=== PATIENT | male | born 1980 | race Caucasian/White ===

== ENCOUNTER 2016-06-20 10:45 | Emergency (ER) | payer MEDICAID ==
[2016-06-20 11:09] VITALS: BP 154/100
[2016-06-20] MEDS ORDERED: Ketorolac 60 MG/2 ML SDV IM ONE (11:22)
--- NOTE | 2016-06-20 11:32 | EDM.PDOC ---
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 Had lesser pain on the right but that has since resolved. Took J[employer]quin Back and Body last at midnight and this was not helpful. No certainty of injury which occurred. Pt reports he was able to work the right arm and shoulder yesterday and now has full range of motion. Left remains limited. Occurred When: other (Monday evening) Occurred Where: home Method of Injury: other (wrestling) Severity: mild Pain/Injury Location: Reports: chest, upper extremity, left Consciousness: Reports: no loss of consciousness Associated Symptoms: Reports: denies other symptoms Allergies/ADRs: Allergies No Known Allergies Allergy (Verified 06/20/16 11:09) Home Medications: Ambulatory Orders Aspirin/Caffeine [Juaquin Back & Body Caplet] 2 tab PO ASDIRECTED 06/20/16 [ Confirmed 06/20/16] Past Medical History Musculoskeletal History: Reports: Fracture, Gout - Infectious Disease History Infectious Disease History: Reports: Chicken pox - Past Surgical History Musculoskeletal Surgical History: Reports: Other (see below) Other Musculoskeletal Surgeries/Procedures:: left hand surgery Social & Family History - Tobacco Use Smoking Status *Q: Current Every Day Smoker Years of Tobacco use: 18 Packs/Tins Daily: 0.5 - Caffeine Use Caffeine Use: Reports: Soda - Alcohol Use Days Per Week of Alcohol Use: 4 Number of Drinks Per Day: 4 Total Drinks Per Week: 16 - Recreational Drug Use Recreational Drug Use: No Review of Systems - Review of Systems Review Of Systems: See Below Constitutional: Reports: no symptoms Eyes: Reports: no symptoms Ears: Reports: no symptoms Nose: Reports: no symptoms Mouth/Throat: Reports: no symptoms Respiratory: Reports: Pleuritic Chest Pain (isolated to left clavicle area) Cardiovascular: Reports: no symptoms GI/Abdominal: Reports: No symptoms Skin: Reports: no symptoms Neurological: Reports: No Symptoms Trauma Exam - Physical Exam Exam: See Below Exam Limited By: No limitations General Appearance: Reports: alert, no apparent distress Head: Reports: atraumatic, normocephalic Eyes: bilateral eye: PERRL Ears: Reports: normal external exam Nose: Reports: normal inspection Throat/Mouth: Reports: Normal voice, No airway compromise, Dental decay Neck: Reports: full range of motion, normal alignment, normal inspection, tender lateral (to left scapular area) Respiratory Exam: Reports: no respiratory distress, lungs clear, normal breath sounds, no accessory muscle use Cardiovascular: Reports: regular rate, rhythm Back: Reports: full range of motion (suburn noted) Extremities: Reports: no evidence of injury, bony-point tenderness (over mid left clavicle without noted deformity) Neurologic: Reports: no motor/sensory deficits, alert, normal mood/affect, oriented x 3 Skin: Reports: Warm/dry Course - Vital Signs Last Recorded V/S: Last Vital Signs Temp 36.4 C 06/20/16 11:11 Pulse 85 06/20/16 11:11 Resp 16 06/20/16 11:11 BP 154/100 H 06/20/16 11:11 Pulse Ox 98 06/20/16 11:11 - Orders/Labs/Meds Orders: Active Orders 24 hr Category Date Time Status Clavicle Lt [CR] Stat Exams 06/20/16 11:23 Taken Meds: Medications Discontinued Medications Generic Name Dose Route Start Last Admin Trade Name Karime PRN Reason Stop Dose Admin Ketorolac Tromethamine 60 mg 06/20/16 11:22 Toradol IM 06/20/16 11:23 ONETIME ONE - Radiology Interpretation Free Text/Narrative:: No acute findings on 1 view clavicle including noted ribs. Radiologist report pending. Departure - Departure Time of Disposition: 11:53 Disposition: Home, Self-Care 01 Condition: good Clinical Impression: Chest wall muscle strain, Elevated blood pressure reading in office without diagnosis of hypertension Instructions: Shoulder Pain, [id number] Referrals: PCP,None [Primary Care Provider] - Forms: ED Department Discharge Additional Instructions: 1. Rest, ice and/or heat to the left chest wall and shoulder area. 2. Gentle range of motion of the left arm and chest as needed. 3. Work restriction as discussed. 4. Followup for a recheck of your left chest wall pain as needed. 5. Your blood pressure should be rechecked in 1 week in the office setting; it was 142/102 at time of discharge. - Problem List & Annotations (1) Chest wall muscle strain SNOMED Code(s): 619257797 Code(s): S29.011A - STRAIN OF MUSCLE AND TENDON OF FRONT WALL OF THORAX, INIT Status: Acute Priority: Medium Current Visit: Yes Qualifiers: Encounter type: initial encounter Qualified Code(s): S29.011A - Strain of muscle and tendon of front wall of thorax, initial encounter (2) Elevated blood pressure reading in office without diagnosis of hypertension SNOMED Code(s): 411282518 Code(s): R03.0 - ELEVATED BLOOD-PRESSURE READING, W/O DIAGNOSIS OF HTN Status: Acute Priority: Medium Current Visit: Yes - Problem List Review Problem List Initiated/Reviewed/Updated: Yes - My Orders Last 24 Hours: My Active Orders 06/20/16 11:23 Clavicle Lt [CR] Stat - Assessment/Plan Last 24 Hours: My Active Orders 06/20/16 11:23 Clavicle Lt [CR] Stat
--- NOTE | 2016-06-20 12:30 | CR ---
Left clavicle There is normal alignment. There is no evidence of fracture. Shoulders unremarkable. Impression: 1. No acute findings.
== END 2016-06-20 12:24 | disposition home or self-care (01) ==
LOC: JP.ED 10:45
DX: S29.011A Strain of muscle and tendon of front wall of thorax, initial encounter (principal); R03.0 Elevated blood-pressure reading, without diagnosis of hypertension; F17.210 Nicotine dependence, cigarettes, uncomplicated; Z79.82 Long term (current) use of aspirin; Z79.899 Other long term (current) drug therapy
CPT/HCPCS: 73000; 96372; 99285; J1885; 99283